=== PATIENT | female | born 1995 | race Caucasian/White ===

== ENCOUNTER 2022-04-29 16:52 | Outpatient (CLI) | payer OTHER, SELFPAY ==
--- NOTE | 2022-04-29 17:00 | CRLHL7_ITS ---
For Patients: As a result of the Century Cures Act, medical imaging exams and procedure reports are released immediately into your electronic medical record. You may view this report before your referring provider. If you have questions, please contact your health care provider. INDICATION: Evaluate anatomy TECHNIQUE: Ultrasound OB pelvis transabdominal. Real time portillo scale imaging of the fetus was performed. COMPARISON: None. FINDINGS: Sonographic imaging demonstrates a single living intrauterine gestation. Fetus demonstrates a regular cardiac rate of 141 beats per minute. Fetus has a breech orientation. The placenta lies anteriorly without evidence of placenta previa. Amniotic fluid volume appears normal. Single deepest vertical pocket: 3.6 cm. Cervical length measures 3.6 cm. The composite ultrasound gestational age is calculated at 21 weeks 3 days with an estimated sonographic due date of 09/06/2022. The estimated weight is 441 grams which lies at the 57%. The following biometric measurements were obtained: Biparietal diameter: 5 cm, 21 weeks 2 days Head circumference: 18.7 cm, 21 weeks Abdominal circumference: 17 cm, 22 weeks Femur length: 3.6 cm, 21 weeks 3 days On anatomic survey, there is a normal appearance of the cerebral ventricles, cisterna magna and cerebellum. The nose, lips, and facial profile appear normal. The cervical, thoracic and lumbar spines are well visualized and appear normal. There is a normal four-chamber heart and the left and right ventricular outflow tracts appear normal. diaphragm, stomach, kidneys and bladder appear normal. There is a normal three-vessel cord and cord insertion site. The four extremities appear normal. IMPRESSION: 1. Single live intrauterine gestation with composite ultrasound gestational age of 21 weeks 3 days and estimated sonographic due date of 09/06/2022. 2. No intrinsic abnormalities noted on anatomic survey. Dictated by Kevin Toro MD @ 04/30/2022 10:10:58 AM (Electronically Signed)
== END 2022-04-29 16:53 | disposition home or self-care (01) ==
LOC: US 16:55
PROVIDERS: Visit Provider Advanced Practice Midwife
DX: Z34.92 Encounter for supervision of normal pregnancy, unspecified, second trimester (principal); Z3A.21 21 weeks gestation of pregnancy
CPT/HCPCS: 76805

== ENCOUNTER 2022-06-16 14:52 | Outpatient (CLI) | payer OTHER, SELFPAY ==
[2022-06-18 17:54] LABS: Rapid Plasma Reagin (RPR) Non Reactive (Non Reactive)
== END 2022-06-16 14:53 | disposition home or self-care (01) ==
PROVIDERS: Visit Provider Advanced Practice Midwife
DX: Z34.93 Encounter for supervision of normal pregnancy, unspecified, third trimester (principal); Z3A.28 28 weeks gestation of pregnancy
CPT/HCPCS: 86592

== ENCOUNTER 2022-08-11 11:01 | Outpatient (CLI) | payer OTHER, SELFPAY ==
[2022-08-12 12:39] LABS: Strep B DNA Probe NEGATIVE (Negative)
[2022-08-14 09:10] LABS: Strep B Pen/Amox Allergy No
== END 2022-08-11 11:02 | disposition home or self-care (01) ==
LOC: NFLDREF 11:01
PROVIDERS: Visit Provider Advanced Practice Midwife
DX: Z34.93 Encounter for supervision of normal pregnancy, unspecified, third trimester (principal); Z3A.36 36 weeks gestation of pregnancy
CPT/HCPCS: 87081; 87653

== ENCOUNTER 2022-08-18 10:53 | Outpatient (CLI) | payer OTHER, SELFPAY ==
--- NOTE | 2022-08-18 11:00 | CRLHL7_ITS ---
For Patients: As a result of the Century Cures Act, medical imaging exams and procedure reports are released immediately into your electronic medical record. You may view this report before your referring provider. If you have questions, please contact your health care provider. INDICATION: Third trimester scan, evaluate growth. MEASURING Smaller THAN DATES COMPARISON: 04/29/2022 TECHNIQUE: Real time portillo scale imaging of the fetus was performed. FINDINGS: Sonographic imaging demonstrates a single living intrauterine gestation. Fetus demonstrates a regular cardiac rate of 137 beats per minute. Fetus has a vertex position. The placenta lies anteriorly. Amniotic fluid volume appears normal and there is a single deepest vertical pocket: 4.3 cm. The estimated weight is 3060gm which lies at the 47th %. On the prior OB ultrasound exam dated 04/29/2022 the estimated weight was at the 57th%. BPD 39th percentile. HC 12th percent. AC 77th percentile. FL 11th percentile. The HC/AC ratio measures 0.95 range (0.92-1.07). IMPRESSION: Sonographic gestational age 36 weeks 3 days and sonographic due date 09/12/2022. Sonographic age 6 days behind the clinical age. Estimated weight 47th percentile. Abdominal circumference 77th percentile. Dictated by Epifanio Parr MD @ 08/18/2022 11:45:52 AM (Electronically Signed)
== END 2022-08-18 10:54 | disposition home or self-care (01) ==
LOC: US 10:54
PROVIDERS: Visit Provider Advanced Practice Midwife
DX: O36.5930 Maternal care for other known or suspected poor fetal growth, third trimester, not applicable or unspecified (principal); Z3A.36 36 weeks gestation of pregnancy
CPT/HCPCS: 76815; 76816

== ENCOUNTER 2022-09-11 07:10 | Inpatient (IN) | payer OTHER, SELFPAY ==
[2022-09-11] VITALS (66 sets, daily range): BP systolic 112–162; BP diastolic 64–98; PULSE 68–133; RESP 16–18; TEMP 36.4–37.1; O2SAT 92–99; BMI 29.0
--- NOTE | 2022-09-11 08:06 | W.PM.LDBA ---
Subjective History of Present Illness Date Seen: 09/11/22 Narrative: Patient is being admitted to Labor and Delivery for IOL for post dates. She is a 26 year old at 40.5 weeks gestation. Her full history and physical was dictated by Mary Jo Cortez CNM on 08/18/22. Please see this for details. Discussed options of Cytotec, AROM, and Pitocin for induction. She is a candidate for any of these given her cervical dilation. Encouraged Pitocin or Cytotec and risks and benefits of all options discussed. She chose Pitocin for induction method. She plans an epidural. 1. H/o anxiety and panic. D/c'd sertraline 3 mo prior to . Managing mood okay. Therapy referral placed at [facility]. Restarted 06/16 on sertraline 25 mg 2. H/o migraines. D/c'd nortriptyline at start of . Fiorcet script sent at 12 wks-not working. Imitrex script sent at 16 wks 3. Inverted/flat nipples; considering 4. Uneasy about exams with new providers. 5. Family h/o rapid labors 6. Covid+ 8/5 32 week Growth US: declines 36 week Growth US: declines 7. Measuring small for dates 08/18 47%ile 8. Asthma OB - H&P: Exam Physical Exam: Vital signs: Pulse BP Pulse Ox 93 136/84 97 09/11/22 07:33 09/11/22 07:33 09/11/22 07:28 Narrative: Vitals per EMR? Psychiatric:? Alert and oriented x3? HEENT:? Normocephalic, atraumatic? Neck:? Supple without adenopathy or thyromegaly? Lungs:? Clear to auscultation bilaterally? Heart:? Regular rate and rhythm, no murmur, rub or gallop? Abdomen:? Soft, nontender, and gravid? Extremities:? No edema or erythema? Pelvic:? SVE: 4cm/80%/-1? Membrane status:? intact? presentation:? vertex? FHT:? Moderate Variability.? Positive Accels.? No Decels. Baseline 130.? [place]:? Ctx Q4-10min ? OB - Problem Based A/P Additional Plan (1) Elective induction of labor planned: Status: Acute (2) Anxiety: Status: Acute (3) Post term over 40 weeks: Status: Acute Plan ASSESSMENT:? at 40.5 weeks gestation? GBS negative? Uncomplicated ? Postterm IOL? ?? PLAN:? 1. Reviewed risks and benefits of IOL with pitocin vs cytotec. Pt prefers pitocin.?? 2. Candidate for analgesia of choice. Planning epidural .? 3. Anticipate ? 4. IV placement for IV pitocin administration. 5. Continuous monitoring per policy for pitocin induction.? ? Delivery/Labor/Induction Plan Plan: induction Induction method: per pitocin protocol
[2022-09-11 08:24] LABS: SARS PCR* Negative SARS-CoV-2 (Negative)
[2022-09-11 08:38] LABS: Basophils Absolute Auto 0.02 K/uL (0.00-0.30); Basophils Percent Auto 0.2 % (0.0-3.0); Eosinophils Absolute Auto 0.04 K/uL (0.00-0.50); Eosinophils Percent Auto 0.4 % (0.0-7.0); Hematocrit 40.7 % (33.0-51.0); Hemoglobin* 14.2 gm/dL (12.0-16.0); Immature Granulocytes Abs Auto 0.04 K/uL (0.00-0.30); Immature Granulocytes Pct Auto 0.4 %; Lymphocytes Percent Auto 17.7 % (20-44); Mean Corpuscular HGB Conc 35 gm/dL (32-36); Mean Corpuscular Hemoglobin 33 pg (26-34); Mean Corpuscular Volume 94 fL (80-100); Monocytes Percent Auto 6.5 % (0.0-11.0); Neutrophils Percent Auto 74.8 % (42.0-72.0); Platelet Count* 184 K/uL (140-440); RDW Coefficient of Variation % 12.8 % (11.5-15.5); Red Blood Count 4.31 m/uL (4.00-5.20); White Blood Count* 10.58 K/uL (4.50-11.00)
[2022-09-11] MEDS: OXYTOCIN 30 unit/500 ML in NS 30 UNIT/500 ML BAG IVPB (08:41)
[2022-09-11] MEDS: LACTATED RINGERS 1000 ML 1,000 ML 125 ML IV ×2 (08:42→14:28)
[2022-09-11 08:46] LABS: Slide Review Reflex No
--- NOTE | 2022-09-11 14:15 | PM.ANBPRC ---
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 Partner: Jian. Lives with: Boyfriend and his father in [place]. Pets: Dog and cat. Presybeterian/cultural needs: No. Chemical or radiation exposure: No. Pre- tobacco use: No. Pre- alcohol use: No. Current tobacco use: No. Current alcohol use: No. Recreational drug use: No. Dietary restrictions: No. Blood transfusion acceptable in an emergency: Yes. Planning to breastfeed: Undecided. PSYCHOSOCIAL HISTORY: History of depression or currently depressed: No. Current physical, emotional, or sexual mistreatment: No. Problems that will make it hard to make it to appointments: No. Smoking Status: Never smoker Meds Home Medications and Allergies Home Medications Medication Instructions Recorded Confirmed Type calcium carbonate 200 mg calcium 200 mg PO BID PRN 03/25/22 09/11/22 History (500 mg) chewable tablet (Tums) prenat.vits,dalila,[id number] 1 tab PO QDAY 03/25/22 09/11/22 History Allergies Allergy/AdvReac Type Severity Reaction Status Date / Time No Known Allergies Allergy Unverified 09/09/22 13:10 Results Labs Labs: Laboratory Results - last 24 hr 09/11/22 09/11/22 09/11/22 07:42 08:28 08:28 WBC 10.58 RBC 4.31 Hgb 14.2 Hct 40.7 MCV 94 MCH 33 MCHC 35 RDW Coeff of [place] 12.8 Plt Count 184 Neut % (Auto) 74.8 H Lymph % (Auto) 17.7 L [place] % (Auto) 6.5 Eos % (Auto) 0.4 Baso % (Auto) 0.2 Neut # (Auto) 7.90 H Lymph # (Auto) 1.90 [place] # (Auto) 0.70 Eos # (Auto) 0.04 Baso # (Auto) 0.02 SARS-CoV-2 (PCR) Negative SARS-CoV-2 Blood Type A Positive Antibody Screen NEGATIVE Vital Signs Vital Signs: Last Vital Signs Temp 97.8 F 09/11/22 12:00 Pulse 88 09/11/22 14:13 BP 122/73 09/11/22 14:13 Pulse Ox 99 09/11/22 14:06 Weight: 74.474 kg Height: 160.02 cm Anesthesia Procedures Epidural Insertion Patient Location: OB Start Time: :15 Stop Time: 14:16 Start Date: 09/11/22 Stop Date: 09/11/22 Reason for Block: procedure for pain Patient Position: sitting Performed By: Idris Mccord Preanesthetic Checklist: IV checked, risks and benefits discussed, surgical consent, monitors and equipment checked, pre-op evaluation, timeout performed and anesthesia consent Prep: chlorhexidine gluconate Monitoring: blood pressure monitoring, continuous pulse oximetry and heart rate Approach: midline Vertebral Space: lumbar (1-5) Needle Type: Tuohy needle Injection Technique: continuous catheter Needle gauge: 17 Needle Length (cm): 10 cm Needle Insertion Depth (cm): 7 Catheter Gauge: 19 Catheter Type: multi-orifice Catheter at skin depth (cm): 13 Test Dose Result: negative and lidocaine 1.5% with epinephrine 1 to 200,000
[2022-09-11] MEDS: ROPIVACAINE 0.2 % PF 10 ML INJ 20 MG EPIDURAL (14:20)
[2022-09-11] MEDS: LIDOCAINE 2% (PF) 5 ML VIAL EPIDURAL (14:21)
[2022-09-11] MEDS: ROPIVACAINE 0.2% 100 ml 100 ML 12 MG EPIDURAL ×2 (14:25→23:21)
--- NOTE | 2022-09-11 14:36 | P.OBPN_ITS ---
Subjective Date Seen: 09/11/22 Narrative: Madison is not resting comfortably in bed after getting an epidural. She is feeling contraction and is able to move her legs but is not having any pain at this time. She is requesting a SVE. She is 6-7cm/90%/0 with a bulging bag. Offered AROM and risks/benefits discussed. She would like to wait a couple of hours and will consider if no progress in a couple of hours. Denies questions or concerns at this time. Objective Vital Signs: Last Vital Signs Temp 97.8 F 09/11/22 12:00 Pulse 91 09/11/22 14:29 BP 121/70 09/11/22 14:29 Pulse Ox 99 09/11/22 14:06 Pelvic Exam Dilation (cm): 6-7 Effacement (%): 90 Station: 0 Contractions Monitor mode: External Contraction Frequency: 2-3 Contraction pattern: Regular Contraction intensity: Strong/Firm Pitocin Rate (mU/min): 8 Assessment Assessment: active labor and induction ongoing Station: 0 Status: Category l Heart Rate Baseline: 130 Trimmer And Reinforcer Variability: Moderate (6-25) Monitor Accelerations: Present Monitor Decelerations: None Plan Plan: Continue Pitocin administration. Consider AROM if no progress. Anticipate vaginal delivery.
[2022-09-11] MEDS: LACTATED RINGERS 1000 ML 1,000 ML 995 ML IV (20:24)
[2022-09-11] MEDS: ONDANSETRON 2 MG/ML inj 4 MG IV (20:33)
[2022-09-12] VITALS (18 sets, daily range): BP systolic 117–165; BP diastolic 68–95; PULSE 68–118; RESP 16–18; TEMP 36.6–37.2; O2SAT 96–97
--- NOTE | 2022-09-12 00:46 | PM.OBPRCVD ---
Procedure Delivery date: 09/12/22 Procedure Done: Global Procedure Details: Patient is a 26 year-old G1 now P1 admitted on 09/11/22 at 40 Weeks, 5 Days gestation for IOL for post dates. she was given the option of cytotec or Pitocin for induction given her cervical dilation and she choose pitocin. She progressed nicely with this induction method.? Cervical exam on admission was 4 cm/80 % effaced/-1 station with membranes intact in vertex presentation.? Contractions were every 3-9 minutes.? heart rate demonstrated baseline 130 bpm with moderate variability, + accelerations, - decelerations; a category 1 tracing. AROM occurred at 1658 with clear fluid to augment labor after a bulging bag was noted.?Lightly stained meconium fluid was noted after delivery of the baby with terminal meconium. She began pushing with an urge to push. She pushed effectively though this stage of labor. She made slow but consistent progress. After 3 hours of pushing she started to get frustrated and was concerned that she would not be able to continue despite continued good effort. Dr. Agustin was asked to consult on labor progress at 2230. She arrived around 2330. The patient was continuing to make progress and the OB agreed to stay in house until delivery if she was needed. She did have some elevated blood pressures at the end of labor and beginning of recovery. Labs drawn. ?? Labor Analgesia:? Epidural? ?? Pitocin:? Yes for induction and after delivery of the baby? ?? Labor onset:? 1425? ?? Complete:? 1904? ?? Pushing:? 1906, feeling pressure and urge to push with contractions.? ?? heart tones during second stage were category 2. Baseline was 150's with moderate variability, good accelerations, and variable and late decelerations.? ?? At 0004 a viable female infant delivered in vertex direct OA presentation over intact perineum via spontaneous vaginal delivery.? was placed on maternal abdomen.? Cord was clamped and cut after a 30-60 second delay when baby was brought to the warmer for lack of respiratory effort. Good heart rate was noted and at the warmer baby had good respiratory effort.?Baby was brought back to mom skin to skin after a few minutes. Nose and mouth were bulb suctioned.? Infant weight pending.? 6 at 1 minute and 7 at 5 minutes.? Shoulder dystocia: no.? Nuchal cord: loose nuchal cord x1, baby was summersaulted at delivery and the cord was easily reduced after delivery of the body.? ?? Placenta delivered spontaneously and complete at 0008 with a 3 vessel cord.? ?? Mother and were stable after delivery.? ?? Lacerations:? 1st degree perineal, repaired with 3. Vicryl. Very shallow bilateral labial tears were also noted but not repaired.? ?? Blood loss: 200 mL.? Blood loss measurement type: EBL due to contamination with amniotic fluid, meconium and urine.? Sponge and needles counts are correct.? Events: Labor Induction Intrapartal Events: Labor Induction and Prolonged 2nd Stage >2.5 Hrs Induction method: per pitocin protocol Delivery augmentation: rupture of membranes Delivery monitor: external FHT and external uterine Episiotomy description: None Laceration description: Perineal - 1st Degree (small bilateral labial lacerations not repaired) Delivery repair: Vicryl Estimated blood loss (mL): 200 (EBL) Anesthesia type: Epidural Disposition: floor [place] Infant Gender: Female presentation: vertex Placental Delivery Description: Spontaneous Cord Description: 3 Vessels, Nuchal Cord and Loose total score - 1 minute: 6 total score - 5 minute: 7 OB Vag Delivery Procedures Additional Procedures NST: Yes Laceration Repair: Yes
[2022-09-12 01:38] LABS: Hematocrit 38.6 % (33.0-51.0); Hemoglobin* 13.5 gm/dL (12.0-16.0); Mean Corpuscular HGB Conc 35 gm/dL (32-36); Mean Corpuscular Hemoglobin 33 pg (26-34); Mean Corpuscular Volume 93 fL (80-100); Platelet Count* 177 K/uL (140-440); Red Blood Count 4.14 m/uL (4.00-5.20); White Blood Count* 18.89 K/uL (4.50-11.00)
[2022-09-12 01:40] LABS: Slide Review Reflex No
[2022-09-12 01:48] LABS: Alanine Aminotransferase* 26 U/L (4-35); Aspartate Amino Transferase* 38 U/L (12-35); Blood Urea Nitrogen* 12 mg/dL (5-24); Creatinine* 0.6 mg/dL (0.5-1.5); Est. Creatinine Clearance* 117.54; Estimated Glomerular Filt Rate 127 ml/min
[2022-09-12] MEDS: IBUPROFEN 600 MG TABLET PO ×4 (03:21→23:50)
[2022-09-12] MEDS: ACETAMINOPHEN 500 MG TABLET 1000 MG PO (05:47)
[2022-09-12] MEDS: DOCUSATE SODIUM 100 MG CAPSULE PO (08:29)
[2022-09-13 01:00] VITALS: BP 120/81; PULSE 87; RESP 16; TEMP 36.6; O2SAT 96
[2022-09-13] MEDS: ACETAMINOPHEN 500 MG TABLET 1000 MG PO (01:40)
[2022-09-13 05:03] VITALS: BP 109/74; PULSE 79; RESP 16; TEMP 36.4; O2SAT 96
--- NOTE | 2022-09-13 09:29 | PM.OBDSVD1 ---
DS: Providers Provider Date Seen: 09/13/22 Date of admission: 09/11/22 07:10 Primary care physician: Not a Local Provider Admitting Clinician: Benita Hough CNM Attending Physician on discharge: Benita Hough CNM Date of Discharge: 09/13/22 DS: Diagnosis Discharge Diagnosis (1) care and examination: Status: Acute (2) Lactating mother: Status: Acute Exam Narrative: Exam Narrative: GENERAL APPEARANCE:? normal affect, alert, no distress? MOOD:? appropriate? CHEST:? clear to auscultation and percussion? HEART:? regular rate and rhythm? ABDOMEN:? soft, non-tender the uterine fundus is 2 cm Below Umbilicus, Midline and is appropriate for the stage of recovery.? PERINEUM:? mild edema of the perineum, there is a 2nd degree that is healing well.? EXTREMITIES:? normal and no edema? Discharge Criteria? Patient has no complaints? No active bleeding?? Doing well? She is requesting discharge home.? Const: Vital Signs, click to edit/add: Vital Signs - 24 hr 09/12/22 12:45 09/12/22 16:32 09/12/22 20:43 Temperature 97.9 F 97.8 F 97.9 F Pulse Rate [Pulse Oximeter] 84 85 94 Respiratory Rate 16 16 16 Blood Pressure [Le ft Arm] 117/75 124/86 124/82 Pulse Oximetry 97 96 96 Oxygen Delivery Me thod Room Air Room Air Room Air 09/13/22 01:00 09/13/22 05:03 Temperature 97.9 F 97.6 F Pulse Rate [Pulse Oximeter] 87 79 Respiratory Rate 16 16 Blood Pressure [Le ft Arm] 120/81 109/74 Pulse Oximetry 96 96 Oxygen Delivery Me thod Room Air Room Air OB - DS: Summary Hospital Course Hospital Course: The patient is a 26 year old G 1 P 1 at 41 weeks gestation that was admitted to the Center on 09/11/22 for IOL for post dates. She had an uncomplicated vaginal delivery. She delivered a viable female . She is breast feeding. the patient has done well. Peripartum Data Infant delivery method: Vaginal Laceration description: Perineal - 1st Degree Episiotomy description: None complications: none Infant Gender: Female Infant Discharge Plan: Home Status at Discharge Functional status at discharge: independent ambulation Overall status at discharge: patient is progressing back to baseline Time Spent with Patient Time attestation: Total time spent providing and/or coordinating discharge services: Discharge Plan Discharge Disposition: Home, Self-Care Date of Admission: 09/11/22 07:10 Attending Provider on Discharge: Benita Hough Primary Care Provider: Provider,Not a Local Condition: Stable Anticipated Discharge Date/Time: 09/13/22 11:00 Discharge Medications: New docusate sodium 100 mg Capsule 100 mg PO DAILY Qty: 60 0RF Rx Instructions: Take 1-2 tablets daily as needed for constipation. ibuprofen 600 mg Tablet 600 mg PO Q6H PRNQty: 30 0RF Continued sertraline 25 mg tablet 25 mg PO QDAY Qty: 90 1RF prenat.vits,dalila,[id number] Tablet 1 tab PO QDAY calcium carbonate [Tums] 200 mg calcium (500 mg) tablet,chewable 200 mg PO BID PRN sumatriptan succinate [Imitrex] 25 mg tablet 25 mg PO ONCE Qty: 20 1RF Rx Instructions: If not fully resolved you may repeat the dose once after at least 2 hours Discharge Orders: Discharge Order (Routine); Ordered 09/13/22 Ordered By: Benita Hough Patient Education: OB Vaginal/Breast Feeding Activity Level: No Restrictions Discharge Diet: Regular Follow Up Appointments: Provider,Not a Local [Primary Care Provider] - Forms: MyHealth Info Instructions
[2022-09-13] MEDS: DOCUSATE SODIUM 100 MG CAPSULE PO (09:46)
[2022-09-13] MEDS: IBUPROFEN 600 MG TABLET PO (09:46)
[2022-09-13 09:47] VITALS: BP 128/92; PULSE 81; RESP 16; TEMP 36.8; O2SAT 98
== END 2022-09-13 12:00 | disposition home or self-care (01) | DRG 807 ==
PROVIDERS: Admitting Provider Advanced Practice Midwife; Visit Provider Advanced Practice Midwife
DX: O48.0 Post-term pregnancy (principal); Z37.0 Single live birth; O77.0 Labor and delivery complicated by meconium in amniotic fluid; O70.0 First degree perineal laceration during delivery; O99.344 Other mental disorders complicating childbirth; F41.9 Anxiety disorder, unspecified; F41.0 Panic disorder [episodic paroxysmal anxiety]; Z86.16 Personal history of COVID-19; Z3A.40 40 weeks gestation of pregnancy
CPT/HCPCS: 01967; 36415; 82565; 84450; 84460; 84520; 85025; 85027; 86850; 86900; 86901; 87635; A9270; J2405; J2795; J7120

== ENCOUNTER 2024-12-21 11:00 | Outpatient (CLI) | payer BC, SELFPAY ==
[2024-12-23 12:12] LABS: HPV Source Cervix; HPV, High Risk by TMA Detected
[2024-12-24 00:21] LABS: HPV Genotype 16 by TMA Not Detected; HPV Genotype 18/45 by TMA Not Detected; HPVG Source Cervix
== END 2024-12-21 11:01 | disposition home or self-care (01) ==
PROVIDERS: PCP Registered Nurse; Visit Provider Registered Nurse
DX: Z12.4 Encounter for screening for malignant neoplasm of cervix (principal)
CPT/HCPCS: 87624; 87625; 88141; 88142

== ENCOUNTER 2025-08-28 10:12 | Outpatient (CLI) | payer BC, SELFPAY ==
--- NOTE | 2025-08-28 10:15 | CRLHL7_ITS ---
For Patients: As a result of the Cures Act, medical imaging exams and procedure reports are released immediately into your electronic medical record. You may view this report before your referring provider. If you have questions, please contact your health care provider. OB ULTRASOUND INDICATION: Dating and viability. TECHNIQUE: Real time grayscale imaging of the fetus was performed. Transvaginal. Transvaginal imaging performed to better demonstrate the endometrium and ovaries. LMP: 06/22/2025. NIC by LMP: 03/29/2026. GA: 9 w, 4 d. Previous US: Yes, outside facility, no access to images. CRL: 3.8 cm. 10 w 5 d. NIC: 03/21/2026. FHR: 155 BPM. Gestational sac: 4.6 cm. Appears within normal limits. Yolk sac: 5.1 mm. Appears within normal limits. Right ovary: Within normal limits. 3.3 x 1.5 x 1.3 cm. Left ovary: Within normal limits. 3.0 x 2.1 x 2.2 cm. CL. IMPRESSION: Single living intrauterine measures 10 weeks 5 days with sonographic due date 03/21/2026. Epifanio Parr M.D. Diagnostic Radiologist [email or web address] ALEJANDRO/sharon herrera/Dictated by: Epifanio Parr MD @ 08/28/2025 10:45:00 AM (Electronically Signed)
== END 2025-08-28 10:13 | disposition home or self-care (01) ==
LOC: US 10:15
PROVIDERS: Visit Provider Advanced Practice Midwife
DX: Z34.91 Encounter for supervision of normal pregnancy, unspecified, first trimester (principal); Z3A.10 10 weeks gestation of pregnancy
CPT/HCPCS: 76801

== ENCOUNTER 2025-09-24 12:53 | Outpatient (CLI) | payer BC, SELFPAY | END 2025-09-24 12:54 | disposition home or self-care (01) | LOC: NFLDREF 10-01 05:31 | PROVIDERS: Visit Provider Midwife | DX: Z34.91 Encounter for supervision of normal pregnancy, unspecified, first trimester (principal) | CPT/HCPCS: 83020; 83021; 85660; 86703; 86704; 86706; 86762; 86780; 86787; 86803; 86850; 86900; 86901; 87086; 87340 ==